=== PATIENT | female | born 1945 | race Caucasian/White ===

== ENCOUNTER 2023-04-02 13:13 | Outpatient (CLI) | payer MEDICARE, BC | END 2023-04-02 13:14 | disposition home or self-care (01) | LOC: BICMRI 13:13 | PROVIDERS: ATTEND Physician Assistant | DX: M16.11 Unilateral primary osteoarthritis, right hip (principal); S72.064A Nondisplaced articular fracture of head of right femur, initial encounter for closed fracture ==